=== PATIENT | female | born 1950 | race Caucasian/White ===

== ENCOUNTER 2018-12-09 06:11 | Emergency (ER) | payer MEDICARE ==
[~2018-12-09] VITALS: Ht 160 cm; Wt 72.6 kg
[2018-12-09 06:17] VITALS: BP_SYST 141
[2018-12-09] MEDS ORDERED: BACITRACIN 1 GM OINT TP ONE (06:30)
[2018-12-09] MEDS ORDERED: LIDOCAINE/EPI 1% 1:100000 20 ML VIAL IJ ONE (06:30)
[2018-12-09] MEDS ORDERED: LIDOCAINE 1%, 20 ML MDV 0 ML ONE (06:39)
[2018-12-09 08:25] VITALS: BP_SYST 135
== END 2018-12-09 08:25 | disposition home or self-care (01) ==
LOC: SED 06:11
DX: S51.011A Laceration without foreign body of right elbow, initial encounter (principal); W26.0XXA Contact with knife, initial encounter; Y93.89 Activity, other specified; Y92.89 Other specified places as the place of occurrence of the external cause; Y99.8 Other external cause status
CPT/HCPCS: 99283; J2001